=== PATIENT | male | born 1985 | race Two or more races ===

== ENCOUNTER 2023-03-13 17:39 | Emergency (ER) | payer BC ==
[~2023-03-13] VITALS: Ht 162.6 cm; Wt 84.4 kg
[2023-03-13] MEDS ORDERED: ATORVASTATIN CA20 MG (17:53)
[2023-03-13] MEDS ORDERED: ASA81 MG (17:53)
[2023-03-13] MEDS ORDERED: BRILINTA90 MG (17:53)
[2023-03-13 19:54] LABS: URINE APPEARANCE Clear; URINE BILIRRUBIN Negative (NEGATIVE); URINE BLOOD Negative; URINE COLOR Yellow; URINE LEUKOCYTE Negative; URINE NITRATE Negative; URINE PROTEIN Negative (NEGATIVE); URINE UROBILINOGEN 0.2 E.U./dl
[2023-03-13 19:58] LABS: URINE BACTERIA 2.5 uL (0.0-1933); URINE GLUCOSE >=1000 MG/DL (NEGATIVE); URINE RBC 1.4 uL (0.0-20.8); URINE WBC 0.1 uL (0.0-23.2)
[2023-03-13 19:59] LABS: HEMATOCRIT 41.9 % (39.0-48.0); HEMOGLOBIN 14.1 g/dL (13-16.00); MEAN CELL VOLUME 82.9 fL (80.0-100.00); MEAN CORPUSCULAR HGB CONC 33.7 g/dl (32.0-36.0); PLATELET COUNT 244 K/uL (150-450); RED BLOOD COUNT 5.06 M/uL (4.00-6.00); RED CELL DISTRIBUTION WIDTH 13.2 % (11.5-14.5)
[2023-03-13 20:19] LABS: ALBUMIN 3.6 gm/dL (3.4-5.0); BILIRUBIN TOTAL 0.26 mg/dL (0.3-1.2); CALCIUM 9.3 mg/dL (8.5-10.1); CREATININE SERUM 1.3 mg/dL (0.70-1.30); GFR 61.46; GLOBULINA 4.4 G/DL (2.4-3.5); POTASSIUM 4.33 mEq/L (3.5-5.1)
== END 2023-03-13 22:47 | disposition home or self-care (01) ==
LOC: ER 17:39
PROVIDERS: Nurse Practitioner Family
DX: E11.65 Type 2 diabetes mellitus with hyperglycemia (principal); Z79.84 Long term (current) use of oral hypoglycemic drugs; H53.8 Other visual disturbances; I10 Essential (primary) hypertension